=== PATIENT | male | born 1950 | race Caucasian/White ===

== ENCOUNTER → 2017-02-14 | Day surgery (SDC) | payer MEDICARE, BC ==
[~2017-02-14] MED LIST: Lactated Ringers 1,000 ML IV SCH; Meperidine PF 50 MG/ML Syringe IV ONE; Meperidine PF 50 MG/ML Syringe ONE; Midazolam 1 MG/ML 2 ML SDV IV ONE; Midazolam 1 MG/ML 2 ML SDV ONE
[2017-02-14 09:16] VITALS: BP 155/83
--- NOTE | 2017-02-14 13:42 | OR ---
DATE OF OPERATION: 02/14/2017 PREOPERATIVE DIAGNOSIS: HISTORY OF POLYPS. POSTOPERATIVE DIAGNOSIS: HISTORY OF POLYPS. SURGEON: Jv Shafer MD PROCEDURE: FULL-LENGTH COLONOSCOPY. ANESTHESIA: Conscious sedation. COMPLICATIONS: None. SPECIMEN: None. FINDINGS: 1. Full length colonoscopy. 2. Minimal sigmoid diverticulosis. 3. No polyp recurrence. RECOMMENDATIONS: Routine colonoscopy every 10 years. INDICATIONS: Mr. Vuong was in for a physical. Dr. Sheth recommended a colonoscopy, as he has not had one for 12 years and did have apparently a hyperplastic polyp removed. DESCRIPTION OF PROCEDURE: The patient was prepped and draped, placed in the left lateral decubitus position. A lubricated Olympus colonoscope was inserted and easily advanced to the cecum. Direct visualization of the ileocecal valve and appendiceal orifice was accomplished. The bowel prep was adequate. Upon withdrawal of the scope, throughout the entire length of the colon, I found no signs of any polyps, masses, ulcerations. There were no vascular abnormalities or signs of colitis. The patient did have a very minimal scattered diverticula in the distal sigmoid colon. No acute inflammatory changes. The rectal vault was unremarkable. Retroflexion of scope in the rectum showed some perianal skin tags. Otherwise, benign. Air was then suctioned. Scope removed without complication. VIVIEN/NORM /[id number]
== END ==
LOC: CC.SDS 07:25
PROVIDERS: ATTEND Family Medicine
DX: Z12.11 Encounter for screening for malignant neoplasm of colon (principal); K57.30 Diverticulosis of large intestine without perforation or abscess without bleeding; E11.9 Type 2 diabetes mellitus without complications
CPT/HCPCS: 82962; G0105; J2175; J2250; J7120

== ENCOUNTER 2017-05-20 16:59 | Observation (INO) | payer MEDICARE, BC ==
[2017-05-20 17:30] LABS: CHLORIDE,CL 107 mEq/L (98-106); SODIUM,NA 143 mEq/L (136-145)
--- NOTE | 2017-05-20 18:38 | EDM.PDOC ---
ED HPI GENERAL MEDICAL PROBLEM - General Chief Complaint: Neuro Symptoms/Deficits Stated Complaint: slurred speech Time Seen by Provider: 05/20/17 17:17 Source of Information: Reports: Patient, Family () History Limitations: Reports: No Limitations - History of Present Illness INITIAL COMMENTS - FREE TEXT/NARRATIVE: Marky is a 66 yo male who presents to the ER today, accompanied by his , after having an episode of difficulty speaking. He states he came in the house today after working outside and checked his blood sugar, which read 40 so he ate a candy bar. Roughly 30 minutes later he rechecked his blood sugar and was in around 120. He then was sitting and talking to his when his speech became garbled and slurred. He admits he knew what was going on and knew what he wanted to say but was having difficulty getting the words out. His was concerned of a stroke and started driving him here to the ER. About [address] here his speech returned to normal. Has never had an episode like this in the past. He denies any limb weakness or any other neurological symptoms. States he feels his normal self. Feels it had nothing to do with his blood sugar as he has had low blood sugars in the past and nothing like this has ever happened. - Related Data Allergies Allergy/AdvReac Type Severity Reaction Status Date / Time No Known Allergies Allergy Verified 05/20/17 17:14 Home Meds: Home Meds Celecoxib [CeleBREX] 200 mg PO DAILY 02/11/17 [History] Cholecalciferol (Vitamin D3) [Vitamin D3] 2,000 unit PO DAILY 02/11/17 [History] Insulin Aspart [NovoLOG] 12 units SUBCUT 1200 02/11/17 [History] Insulin Aspart [NovoLOG] 12 units SUBCUT ACDINNER 02/11/17 [History] Insuln Asp Prot/Insulin Aspart [NovoLOG Mix 70-30] 26 - 30 units SUBCUT BEDTIME 02/11/17 [History] Multivitamin [Multi-Day Vitamins] 1 tab PO DAILY 02/11/17 [History] Rosuvastatin Calcium 10 mg PO DAILY 02/11/17 [History] Testosterone Cypionate 200 mg IM Q14D 02/11/17 [History] Valsartan [Diovan] 80 mg PO BID 02/11/17 [History] Insulin Aspart [NovoLOG] 12 units SUBCUT QAM 02/14/17 [History] Past Medical History - Past Health History Medical/Surgical History: Denies Medical/Surgical History Cardiovascular History: Reports: Hypertension Respiratory History: Reports: Sleep Apnea Other Musculoskeletal History: Knee sugery. Endocrine/Metabolic History: Reports: Diabetes, Type I - Past Surgical History GI Surgical History: Reports: Cholecystectomy Musculoskeletal Surgical History: Reports: Shoulder Surgery Other Musculoskeletal Surgeries/Procedures:: Back surgery 2014 Social & Family History - Family History Family Medical History: Noncontributory - Tobacco Use Smoking Status *Q: Former Smoker Used Tobacco, but Quit: Yes Month Tobacco Last Used: 2015 - Caffeine Use Caffeine Use: Reports: Coffee, Soda - Recreational Drug Use Recreational Drug Use: No ED ROS GENERAL - Review of Systems Review Of Systems: See Below Constitutional: Reports: No Symptoms HEENT: Reports: No Symptoms Respiratory: Reports: No Symptoms. Denies: Shortness of Breath, Cough Cardiovascular: Reports: No Symptoms. Denies: Chest Pain, Lightheadedness, Palpitations, Syncope Endocrine: Reports: No Symptoms GI/Abdominal: Reports: No Symptoms : Reports: No Symptoms Musculoskeletal: Reports: No Symptoms Neurological: Reports: Trouble Speaking. Denies: Confusion, Dizziness, Headache , Numbness, Paresthesia, Seizure, Syncope, Weakness, Gait Disturbance Psychiatric: Reports: No Symptoms ED EXAM, NEURO - Physical Exam Exam: See Below Exam Limited By: No Limitations General Appearance: Alert, WD/WN, No Apparent Distress Eye Exam: Bilateral Eye: EOMI, Normal Inspection, PERRL Ears: Normal External Exam, Normal TMs, Other (bilateral cerumenosis) Nose: Normal Inspection, Normal Mucosa, No Blood Throat/Mouth: Normal Inspection, Normal Lips, Normal Teeth, Normal Gums, Normal Oropharynx, Normal Voice, No Airway Compromise Head Exam: Atraumatic, Normocephalic Neck: Normal Inspection, Supple, Full Range of Motion Respiratory/Chest: No Respiratory Distress, Lungs Clear, Normal Breath Sounds, No Accessory Muscle Use Cardiovascular: Normal Peripheral Pulses, Regular Rate, Rhythm, No Edema, No Murmur GI/Abdominal: Normal Bowel Sounds, Soft, No Organomegaly, No Mass Neurological: Alert, Normal Mood/Affect, CN II-XII Intact, Normal Plantar Flexion, Normal Gait, No Motor/Sensory Deficits, Oriented x 3. No: Abnormal Finger to Nose, Straight Leg Raise (L), Straight Leg Raise (R), Difficulty Walking Extremities: Normal Inspection, Normal Range of Motion, Non-Tender, No Pedal Edema, Normal Capillary Refill Psychiatric: Normal Affect, Normal Mood Skin Exam: Warm, Dry, Intact, Normal Color, No Rash EKG INTERPRETATION EKG Date: 05/20/17 Time: 17:10 Rhythm: NSR Course - Vital Signs Last Recorded V/S: Last Vital Signs Temp 98.1 F 05/20/17 17:15 Pulse 82 05/20/17 17:15 Resp 20 05/20/17 17:15 BP 154/81 H 05/20/17 17:15 Pulse Ox 97 05/20/17 17:15 - Orders/Labs/Meds Orders: Active Orders 24 hr Category Date Time Status EKG Documentation Completion [RC] STAT Care 05/20/17 17:04 Active Head wo Cont [CT] Stat Exams 05/20/17 17:20 Taken Labs: Laboratory Tests 05/20/17 05/20/17 05/20/17 Range/Units 17:14 17:14 17:14 WBC 9.5 (5.0-10.0) 10^3/uL RBC 4.39 L (4.50-6.00) 10^6/uL Hgb 13.6 L (14.0-18.0) g/dL Hct 41.3 (40.0-54.0) % MCV 94.1 H (82.0-94.0) fL MCH 31.0 (27.0-32.0) pg MCHC 32.9 L (33.0-38.0) g/dL RDW Coeff of Karina 13.3 (11.0-15.0) % Plt Count 226 (150-400) 10^3/uL Neut % (Auto) 72.5 (35-85) % Lymph % (Auto) 16.5 (10-55) % [place] % (Auto) 9.1 (0-16) % Eos % (Auto) 1.6 (0-5) % Baso % (Auto) 0.3 (0-3) % Neut # (Auto) 6.87 (1.80-7.00) 10^3/uL Lymph # (Auto) 1.56 (1.00-4.80) 10^3/uL [place] # (Auto) 0.86 H (0.00-0.80) 10^3/uL Eos # (Auto) 0.15 (0.00-0.45) 10^3/uL Baso # (Auto) 0.03 10^3/uL PT 10.2 (9.7-12.3) SEC INR 0.95 (0.92-1.18) APTT 24.3 L (24.5-30.9) SEC Sodium 143 (136-145) mEq/L Potassium 4.6 (3.5-5.0) mEq/L Chloride 107 H (98-106) mEq/L Carbon Dioxide 28 (21-32) mmol/L BUN 17 (7-18) mg/dL Creatinine 1.2 (0.7-1.3) mg/dL Est Cr Clr Drug Dosing 71.35 mL/min Estimated GFR (MDRD) > 60 (>=60) mL/min Glucose 140 H D (75-99) mg/dL Calcium 8.8 (8.4-10.1) mg/dL Creatine Kinase 114 (35-232) U/L Departure - Departure Time of Disposition: 17:47 Disposition: Refer to Observation Condition: Good Clinical Impression: TIA (transient ischemic attack) Qualifiers: Transient cerebral ischemia type: unspecified Qualified Code(s): G45.9 - Transient cerebral ischemic attack, unspecified - Discharge Information - Problem List & Annotations (1) TIA (transient ischemic attack) SNOMED Code(s): 015209206, [id number] Code(s): G45.9 - TRANSIENT CEREBRAL ISCHEMIC ATTACK, UNSPECIFIED Status: Acute Current Visit: Yes Qualifiers: Transient cerebral ischemia type: unspecified Qualified Code(s): G45.9 - Transient cerebral ischemic attack, unspecified - My Orders Last 24 Hours: My Active Orders 05/20/17 17:04 EKG Documentation Completion [RC] STAT 05/20/17 17:20 Head wo Cont [CT] Stat - Assessment/Plan Admission H&P: Please use this note as an admission H&P Last 24 Hours: My Active Orders 05/20/17 17:04 EKG Documentation Completion [RC] STAT 05/20/17 17:20 Head wo Cont [CT] Stat Plan: Discussed findings with Marky and his . Physical exam, CT Head and EKG were grossly benign. Will admit to Dr. Sheth's services under observation d/t concern of TIA. Consulted with Dr. Sheth in regards to Marky's condition and agreed with admission for observation. Advised obtaining CTA of the Head and Neck. Marky and his verbalized understanding and he was transferred to the floor in satisfactory condition.
[2017-05-20] MEDS ORDERED: Sodium Chloride 0.9% 10 ML Syringe FLUSH PRN (18:46)
[2017-05-20] MEDS ORDERED: Enoxaparin 40 MG/0.4 ML Syringe SUBCUT SCH ×2 (18:46→20:00)
[2017-05-20] MEDS ORDERED: Testosterone Cypionate 200 MG/ML MDV IM SCH (18:46)
[2017-05-20] MEDS ORDERED: Acetaminophen 325 MG Tab PO PRN (18:46)
[2017-05-20] MEDS ORDERED: Insuln Aspart Prot/Insulin Aspart 100 Units/ML 3 ML FlexPen SUBCUT SCH (20:00)
[2017-05-20] MEDS ORDERED: Losartan 25 MG Tab PO SCH (20:00)
[2017-05-20] MEDS ORDERED: ROSUVASTATIN 20 MG PO SCH (20:45)
[2017-05-20] MEDS: VALSARTAN 160 MG PO SCH (21:26)
[2017-05-21] MEDS ORDERED: Iopamidol 755 Mg/ML 100 ML Bottle IVPUSH ONE (07:19)
[2017-05-21] MEDS ORDERED: Insulin Aspart 100 Units/ML 3 ML Pen SUBCUT SCH ×3 (08:00→17:00)
[2017-05-21] MEDS: VALSARTAN 160 MG PO SCH (08:42)
--- NOTE | 2017-05-21 09:10 | PN ---
DATE: 05/21/2017 Marky Vuong came in with a garbled speech last night. Blood sugar is 140, so I suspect he had a mild TIA. Neurologically, he is normal this morning. We will do a CTA of head and neck and an echo and then we will go from there. SWATI/NORM /[id number]
[2017-05-21 11:40] VITALS: BP 154/78
[2017-05-21] MEDS ORDERED: Simvastatin 40 MG Tab PO SCH (20:00)
[2017-05-21] MEDS ORDERED: CELECOXIB 200 MG PO SCH (20:00)
[2017-05-21] MEDS ORDERED: Insuln Aspart Prot/Insulin Aspart 100 Units/ML 3 ML FlexPen SUBCUT SCH (20:00)
--- NOTE | 2017-05-23 10:34 | DISCH ---
HOSPITAL COURSE: This is a 66-year-old gentleman came in with garbled speech with diagnosis of TIA, admitted to the hospital, started on Plavix and Lovenox, responded nicely, and that all cleared. CTA of head and neck showed 75% carotid stenosis, left side. Echo pending. Rest of lab other than elevated blood sugars within normal limits. DISPOSITION: The patient now discharged home. We will see him back in the clinic next week. DISCHARGE MEDICATIONS: Home medications plus Plavix 75. DISCHARGE DIAGNOSIS: 1. TRANSIENT ISCHEMIC ATTACK. 2. DIABETES MELLITUS. SWATI/NORM /[id number]
== END 2017-05-21 11:59 | disposition home or self-care (01) ==
LOC: CC.ED 16:59 → CC.MS 17:47 → UNDOADMOB 17:47 → CC.MS 18:46
PROVIDERS: ADMIT Physician Assistant Medical; ATTEND General Practice
DX: G45.9 Transient cerebral ischemic attack, unspecified (principal); E11.9 Type 2 diabetes mellitus without complications; I10 Essential (primary) hypertension; G47.30 Sleep apnea, unspecified; Z79.4 Long term (current) use of insulin; Z79.899 Other long term (current) drug therapy; Z90.49 Acquired absence of other specified parts of digestive tract; Z98.890 Other specified postprocedural states; Z87.891 Personal history of nicotine dependence
CPT/HCPCS: 36415; 70450; 70496; 70498; 80048; 81001; 82550; 82962; 85025; 85610; 85730; 93005; 93306; 96372; 99285; A9270; G0378; J1650; J1815; Q9967; 93010; 99217; 99220

== ENCOUNTER 2020-09-03 18:46 | Emergency (ER) | payer MEDICARE, BC ==
[2020-09-03 18:49] VITALS: BP 143/68; PULSE 95
--- NOTE | 2020-09-03 19:27 | EDM.PDOC ---
ED HPI GENERAL MEDICAL PROBLEM - General Chief Complaint: General Stated Complaint: SOB. COVID+ Time Seen by Provider: 09/03/20 19:10 Source of Information: Reports: Patient History Limitations: Reports: No Limitations - History of Present Illness INITIAL COMMENTS - FREE TEXT/NARRATIVE: Marky is a 69 year old male who presents to ER with complaints of shortness of breath and fever. Was diagnosed with COVID about 14 days ago. Was given a course of zithromax and dexamethasone from Dr. Sheth. Is currently taking Vitamin C, Vitamin D and Zinc. Is also on magnesium and admits that has caused worsening diarrhea for him. Has not had any recent vomiting. Does not have much of an appetite. Has not been very active as of late. Was feeling pretty good but over the last 4 days, continues to spike fevers in the afternoon. Does take an aspirin or tylenol when gets one. Mostly concerned at this point as to why he is still running fevers. Does have shortness of breath but admits that is somewhat chronic for him due to his smoking history. Has mild body aches. No loss of taste or smell. Onset: Gradual Duration: Week(s): Location: Reports: Chest, Generalized Quality: Reports: Ache Severity: Mild Treatments YEAST PUSHER: Reports: Aspirin - Related Data Allergies Allergy/AdvReac Type Severity Reaction Status Date / Time No Known Allergies Allergy Verified 09/03/20 19:01 Home Meds: Home Meds Cholecalciferol (Vitamin D3) [Vitamin D3] 5,000 unit PO DAILY 02/11/17 [History] Multivitamin [Multi-Day Vitamins] 1 tab PO DAILY 02/11/17 [History] Rosuvastatin Calcium 10 mg PO DAILY 02/11/17 [History] Testosterone Cypionate 200 mg IM Q30D 02/11/17 [History] Insulin Glargine,Hum.Rec.Anlog [Uyen Solnina] 30 units SQ BEDTIME 03/19/18 [History] hydroCHLOROthiazide [Hydrochlorothiazide] 12.5 mg PO DAILY 03/19/18 [History] Celecoxib [CeleBREX] 200 mg PO BID 05/14/18 [History] Clopidogrel Bisulfate [Plavix] 75 mg PO DAILY 05/14/18 [History] Metoprolol Succinate 25 mg PO DAILY 05/14/18 [History] Cyclobenzaprine [Flexeril] 10 mg PO DAILY PRN 02/20/19 [History] Insulin Aspart [NovoLOG] See Protocol SUBCUT ASDIRECTED 02/20/19 [History] Losartan [Cozaar] 50 mg PO DAILY 02/20/19 [History] Potassium 99 mg PO DAILY 02/20/19 [History] Past Medical History - Past Health History Medical/Surgical History: Denies Medical/Surgical History Cardiovascular History: Reports: High Cholesterol, Hypertension Other Cardiovascular History: Says he has been SOB for some time. Had a physical with Dr. Sheth as well as a calcium score test. Had a stress test, sent to cardiology. Went in through wrist. Has seen cardiology since his stent. Since stents: denies cp, SOB much improved, says he has back and knee problems, says his blood sugars are "all over the place"--discussed. Quit smoking a year ago, had smoked for 30 years Respiratory History: Reports: Sleep Apnea Other Musculoskeletal History: Knee sugery. Endocrine/Metabolic History: Reports: Diabetes, Type II - Past Surgical History GI Surgical History: Reports: Cholecystectomy Musculoskeletal Surgical History: Reports: Shoulder Surgery Other Musculoskeletal Surgeries/Procedures:: Back surgery 2014 Social & Family History - Family History Family Medical History: Noncontributory - Tobacco Use Tobacco Use Status *Q: Former Tobacco User Used Tobacco, but Quit: Yes Month/Year Tobacco Last Used: 2009 - Caffeine Use Caffeine Use: Reports: None - Recreational Drug Use Recreational Drug Use: No ED ROS GENERAL - Review of Systems Review Of Systems: See Below Constitutional: Reports: Fever, Chills, Malaise, Weakness, Fatigue, Decreased Appetite HEENT: Denies: Ear Pain, Sinus Problem, Throat Pain, Vertigo Respiratory: Reports: Shortness of Breath. Denies: Wheezing, Cough Cardiovascular: Denies: Chest Pain, Edema, Lightheadedness Endocrine: Reports: Fatigue GI/Abdominal: Reports: Diarrhea, Nausea. Denies: Abdominal Pain, Constipation, Vomiting : Reports: No Symptoms Musculoskeletal: Reports: No Symptoms Skin: Reports: No Symptoms Neurological: Reports: Weakness ED EXAM, GENERAL - Physical Exam Exam: See Below Exam Limited By: No Limitations General Appearance: Alert, WD/WN, No Apparent Distress Ears: Normal External Exam, Normal TMs Nose: Normal Inspection, Normal Mucosa, No Blood Throat/Mouth: Normal Inspection, Normal Oropharynx Head: Normocephalic Neck: Normal Inspection, Supple, Non-Tender Respiratory/Chest: No Respiratory Distress, Lungs Clear, Normal Breath Sounds Cardiovascular: Regular Rate, Rhythm GI/Abdominal: Normal Bowel Sounds, Soft, Non-Tender Neurological: Alert, Oriented Skin Exam: Warm, Dry Course - Vital Signs Last Recorded V/S: Last Vital Signs Temp 98.1 F 09/03/20 18:48 Pulse 95 09/03/20 18:48 Resp 20 09/03/20 18:48 BP 143/68 H 09/03/20 18:48 Pulse Ox 95 09/03/20 18:48 - Orders/Labs/Meds Orders: Active Orders 24 hr Category Date Time Status Chest 2V [CR] Stat Exams 09/03/20 19:17 Taken CULTURE BLOOD [BC] Stat Lab 09/03/20 19:00 Received CULTURE BLOOD [BC] Stat Lab 09/03/20 19:10 Received Sodium Chloride 0.9% [Normal Saline] 250 ml Med 09/03/20 19:30 Active IV ASDIRECTED Blood Culture x2 Reflex Set [OM.PC] Stat Oth 09/03/20 18:47 Ordered Blood Culture x2 Reflex Set [OM.PC] Stat Oth 09/03/20 18:49 Ordered Medication Orders Sodium Chloride (Normal Saline) 250 mls @ 250 mls/hr IV ASDIRECTED RODGER Last Admin: 09/03/20 19:36 Dose: 250 mls/hr Documented by: DONIS Labs: Laboratory Tests 09/03/20 09/03/20 09/03/20 Range/Units 19:00 19:00 19:00 WBC 8.3 (5.0-10.0) 10^3/uL RBC 4.65 (4.50-6.00) 10^6/uL Hgb 14.3 (14.0-18.0) g/dL Hct 42.7 (40.0-54.0) % MCV 91.8 (82.0-94.0) fL MCH 30.8 (27.0-32.0) pg MCHC 33.5 (33.0-38.0) g/dL RDW Coeff of Karina 13.1 (11.0-15.0) % Plt Count 191 (150-400) 10^3/uL Neut % (Auto) 82.9 (35-85) % Lymph % (Auto) 9.0 L (10-55) % [place] % (Auto) 7.6 (0-16) % Eos % (Auto) 0.4 (0-5) % Baso % (Auto) 0.1 (0-3) % Neut # (Auto) 6.88 (1.80-7.00) 10^3/uL Lymph # (Auto) 0.75 L (1.00-4.80) 10^3/uL [place] # (Auto) 0.63 (0.00-0.80) 10^3/uL Eos # (Auto) 0.03 (0.00-0.45) 10^3/uL Baso # (Auto) 0.01 10^3/uL PT (9.7-12.3) SEC INR (0.92-1.18) D-Dimer, Quantitative 1.68 H (0.00-0.50) Sodium 136 (136-145) mEq/L Potassium 4.8 (3.5-5.0) mEq/L Chloride 101 (98-106) mEq/L Carbon Dioxide 23 (21-32) mmol/L BUN 25 H (7-18) mg/dL Creatinine 1.6 H (0.7-1.3) mg/dL Est Cr Clr Drug Dosing 51.38 mL/min Estimated GFR (MDRD) 43 L (>=60) mL/min Glucose 178 H (75-99) mg/dL Lactic Acid (0.4-2.0) mmol/L Calcium 8.5 (8.4-10.1) mg/dL Magnesium 2.2 (1.8-2.4) mg/dL Total Bilirubin 0.4 (0.0-1.0) mg/dL AST 37 (15-37) U/L ALT 63 (12-78) U/L Alkaline Phosphatase 152 H (46-116) U/L Troponin I < 0.017 (0.00-0.06) ng/mL C-Reactive Protein 4.0 H (0.2-0.8) mg/dL Total Protein 7.0 (6.4-8.2) g/dL Albumin 2.9 L (3.4-5.0) g/dL 09/03/20 09/03/20 Range/Units 19:00 19:00 WBC (5.0-10.0) 10^3/uL RBC (4.50-6.00) 10^6/uL Hgb (14.0-18.0) g/dL Hct (40.0-54.0) % MCV (82.0-94.0) fL MCH (27.0-32.0) pg MCHC (33.0-38.0) g/dL RDW Coeff of Karina (11.0-15.0) % Plt Count (150-400) 10^3/uL Neut % (Auto) (35-85) % Lymph % (Auto) (10-55) % [place] % (Auto) (0-16) % Eos % (Auto) (0-5) % Baso % (Auto) (0-3) % Neut # (Auto) (1.80-7.00) 10^3/uL Lymph # (Auto) (1.00-4.80) 10^3/uL [place] # (Auto) (0.00-0.80) 10^3/uL Eos # (Auto) (0.00-0.45) 10^3/uL Baso # (Auto) 10^3/uL PT 9.6 L (9.7-12.3) SEC INR 0.95 (0.92-1.18) D-Dimer, Quantitative (0.00-0.50) Sodium (136-145) mEq/L Potassium (3.5-5.0) mEq/L Chloride (98-106) mEq/L Carbon Dioxide (21-32) mmol/L BUN (7-18) mg/dL Creatinine (0.7-1.3) mg/dL Est Cr Clr Drug Dosing mL/min Estimated GFR (MDRD) (>=60) mL/min Glucose (75-99) mg/dL Lactic Acid 1.0 (0.4-2.0) mmol/L Calcium (8.4-10.1) mg/dL Magnesium (1.8-2.4) mg/dL Total Bilirubin (0.0-1.0) mg/dL AST (15-37) U/L ALT (12-78) U/L Alkaline Phosphatase (46-116) U/L Troponin I (0.00-0.06) ng/mL C-Reactive Protein (0.2-0.8) mg/dL Total Protein (6.4-8.2) g/dL Albumin (3.4-5.0) g/dL Meds: Medications Generic Name Dose Route Start Last Admin Trade Name Verenice PRN Reason Stop Dose Admin Sodium Chloride 250 mls @ 250 mls/hr 09/03/20 19:30 09/03/20 19:36 Normal Saline IV 250 mls/hr ASDIRECTED RODGER Administration - Re-Assessments/Exams Free Text/Narrative Re-Assessment/Exam: 09/03/20 19:47 Labs are all essentially stable. CRP 4.0. WBC is stable. Creatinine is elevated at 1.6. IV fluids started, will give 250 ml bolus. Much discussion held with by phone and patient. Departure - Departure Time of Disposition: 20:43 Disposition: Home, Self-Care 01 Condition: Fair Clinical Impression: COVID-19 - Discharge Information *PRESCRIPTION DRUG MONITORING PROGRAM REVIEWED*: No *COPY OF PRESCRIPTION DRUG MONITORING REPORT IN PATIENT SARAH: No Instructions: COVID-19 Referrals: Benjy Sheth MD [Primary Care Provider] - Forms: ED Department Discharge Additional Instructions: 1. Push fluids 2. Alternate tylenol with either ibuprofen or Anacin every 3 hours 3. Rest/lie on your stomach for 20-30 minutes every few hours as able 4. Deep breathing exercises 5. Continue Vitamin C, Vitamin D and Zinc. Hold magnesium for now until diarrhea improves as magnesium level is normal today in ER 6. Contact Dr. Sheth with any concerns. Sepsis Event Note (ED) - Evaluation Sepsis Screening Result: No Definite Risk - Focused Exam Vital Signs: Vital Signs Temp Pulse Resp BP Pulse Ox 09/03/20 18:48 98.1 F 95 20 143/68 H 95 - My Orders Last 24 Hours: My Active Orders 09/03/20 18:47 Blood Culture x2 Reflex Set [OM.PC] Stat 09/03/20 18:49 Blood Culture x2 Reflex Set [OM.PC] Stat 09/03/20 19:00 CULTURE BLOOD [BC] Stat 09/03/20 19:10 CULTURE BLOOD [BC] Stat 09/03/20 19:17 Chest 2V [CR] Stat 09/03/20 19:30 Sodium Chloride 0.9% [Normal Saline] 250 ml IV ASDIRECTED - Assessment/Plan Last 24 Hours: My Active Orders 09/03/20 18:47 Blood Culture x2 Reflex Set [OM.PC] Stat 09/03/20 18:49 Blood Culture x2 Reflex Set [OM.PC] Stat 09/03/20 19:00 CULTURE BLOOD [BC] Stat 09/03/20 19:10 CULTURE BLOOD [BC] Stat 09/03/20 19:17 Chest 2V [CR] Stat 09/03/20 19:30 Sodium Chloride 0.9% [Normal Saline] 250 ml IV ASDIRECTED
[2020-09-03] MEDS ORDERED: Sodium Chloride 0.9% 250 ML IV SCH (19:30)
[2020-09-03 19:32] LABS: CHLORIDE,CL 101 mEq/L (98-106); SODIUM,NA 136 mEq/L (136-145)
== END 2020-09-03 20:45 | disposition home or self-care (01) ==
LOC: CC.ED 18:46
DX: U07.1 COVID-19 (principal); E78.00 Pure hypercholesterolemia, unspecified; I10 Essential (primary) hypertension; E11.9 Type 2 diabetes mellitus without complications; Z90.89 Acquired absence of other organs; Z79.899 Other long term (current) drug therapy; Z87.891 Personal history of nicotine dependence
CPT/HCPCS: 36415; 71046; 80053; 83605; 83735; 84484; 85025; 85379; 85610; 86140; 87040; 93005; 93010; 99284; 99285-25; J7050

== ENCOUNTER → 2022-03-22 | Day surgery (SDC) | payer MEDICARE, BC ==
[~2022-03-22] MED LIST changes: +Ketamine 200 MG/20 ML MDV ONE; -Meperidine PF 50 MG/ML Syringe IV ONE; -Meperidine PF 50 MG/ML Syringe ONE; -Midazolam 1 MG/ML 2 ML SDV IV ONE; -Midazolam 1 MG/ML 2 ML SDV ONE; +Propofol 200 MG/20 ML SDV ONE; +fentaNYL 100 MCG/2 ML SDV ONE
[2022-03-22 10:19] VITALS: BP 156/74; PULSE 83
== END ==
LOC: CC.SDS 07:25
PROVIDERS: ATTEND Family Medicine
DX: D12.3 Benign neoplasm of transverse colon (principal); K62.1 Rectal polyp; E11.9 Type 2 diabetes mellitus without complications; E55.9 Vitamin D deficiency, unspecified; J44.9 Chronic obstructive pulmonary disease, unspecified; I10 Essential (primary) hypertension; G47.33 Obstructive sleep apnea (adult) (pediatric); I25.10 Atherosclerotic heart disease of native coronary artery without angina pectoris; E78.5 Hyperlipidemia, unspecified; Z87.891 Personal history of nicotine dependence; Z79.899 Other long term (current) drug therapy; Z90.49 Acquired absence of other specified parts of digestive tract; Z98.890 Other specified postprocedural states; Z86.73 Personal history of transient ischemic attack (TIA), and cerebral infarction without residual deficits
CPT/HCPCS: 00811; 82947; J2704; J3010; J7120

== ENCOUNTER → 2023-04-04 | Day surgery (SDC) | payer MEDICARE, BC ==
[~2023-04-04] MED LIST changes: +Lidocaine 2% 20 ML MDV ONE; -fentaNYL 100 MCG/2 ML SDV ONE; +fentaNYL 50 MCG/ML SDV ONE
[2023-04-04 13:46] VITALS: BP 147/72; PULSE 56
== END ==
LOC: CC.SDS 08:12
PROVIDERS: ATTEND Family Medicine
DX: K29.50 Unspecified chronic gastritis without bleeding (principal); K21.9 Gastro-esophageal reflux disease without esophagitis; E11.9 Type 2 diabetes mellitus without complications; I10 Essential (primary) hypertension; G47.30 Sleep apnea, unspecified; Z79.4 Long term (current) use of insulin; Z87.891 Personal history of nicotine dependence
CPT/HCPCS: 00731; 87081; 88305; 88342; 99100; J2704; J3010; J3490; J7120

== ENCOUNTER 2023-09-08 16:28 | Inpatient (IN) | payer MEDICARE, BC ==
[2023-09-08] MEDS ORDERED: Sodium Chloride 0.9% 1,000 ML IV ONE (16:51)
[2023-09-08 16:57] LABS: BASOPHILS ABSOLUTE AUTO 0.04 10^3/uL (0.00-0.50); BASOPHILS PERCENT AUTO 0.3 % (0-1); EOSINOPHILS ABSOLUTE AUTO 0.13 10^3/uL (0.00-1.50); HEMOGLOBIN 14.3 g/dL (14.0-18.0); IMMATURE GRAN PERCENT AUTO 1.6 % (0.0-4.9); LYMPHOCYTES ABSOLUTE AUTO 1.35 10^3/uL (0.60-5.00); LYMPHOCYTES PERCENT AUTO 10.8 % (24-44); MEAN CORPUSCULAR HEMOGLOBIN 31.4 pg (27.0-32.0); MEAN CORPUSCULAR HGB CONC 33.3 g/dL (32.0-36.0); MEAN CORPUSCULAR VOLUME 94.3 fL (83.0-97.0); MONOCYTES ABSOLUTE AUTO 0.74 10^3/uL (0.00-1.50); MONOCYTES PERCENT AUTO 5.9 % (0-10); NEUTROPHILS ABSOLUTE AUTO 10.05 x10^3/uL (1.80-8.00); NEUTROPHILS PERCENT AUTO 80.4 % (41-71); PLATELET COUNT,PLT 245 10^3/uL (150-400); RED BLOOD CELL COUNT 4.56 x10^6/uL (4.50-6.00); WHITE BLOOD CELL COUNT,WBC 12.5 10^3/uL (4.0-11.0)
[2023-09-08] MEDS ORDERED: Diphtheria/Tetanus Toxoids,Adult (Td) 0.5 ML SDV IM ONE (16:57)
[2023-09-08 17:10] LABS: ALANINE AMINOTRANSFERASE,ALT 54 U/L (12-78); ALBUMIN 3.4 g/dL (3.4-5.0); ALKALINE PHOSPHATASE 130 U/L (46-116); ASPARTATE AMNIOTRANSFERASE,AST 65 U/L (15-37); BILIRUBIN TOTAL 0.2 mg/dL (0.0-1.0); BLOOD UREA NITROGEN,BUN 14 mg/dL (7-18); C-REACTIVE PROTEIN 0.05 mg/dL (<=0.30); CALCIUM 9.3 mg/dL (8.4-10.1); CARBON DIOXIDE,CO2 30 mmol/L (21-32); CHLORIDE,CL 104 mEq/L (98-106); CREATININE 1.3 mg/dL (0.7-1.3); GLUCOSE RANDOM 92 mg/dL (75-99); POTASSIUM,K 4.5 mEq/L (3.5-5.0); PROTEIN TOTAL,TP 7.1 g/dL (6.4-8.2); SODIUM,NA 140 mEq/L (136-145)
[2023-09-08 17:11] LABS: ESTIMATED GFR 59 mL/min (>=60)
[2023-09-08] MEDS ORDERED: HYDROmorphone 0.5 MG/0.5 ML Syringe IVPUSH ONE ×2 (18:04→19:40)
[2023-09-08] MEDS ORDERED: Iopamidol 755 Mg/ML 100 ML Bottle IVPUSH ONE (18:07)
[2023-09-08] MEDS: Bacitracin/Neomycin/Polymyxin B Oint 28.4 GM Tube TOP SCH (18:55)
[2023-09-08] MEDS ORDERED: Acetaminophen/HYDROcodone 325-5 MG Tab PO ONE (19:40)
[2023-09-08 20:05] LABS: APPEARANCE,URINE CLEAR (CLEAR); BILIRUBIN,URINE NEGATIVE (NEGATIVE); COLOR,URINE YELLOW (YELLOW); GLUCOSE,URINE NEGATIVE (NEGATIVE); KETONES,URINE 15 mg/dL (NEGATIVE); LEUKOCYTE ESTERASE,URINE NEGATIVE (NEGATIVE); NITRITE,URINE NEGATIVE (NEGATIVE); OCCULT BLOOD,URINE TRACE-INTACT (NEGATIVE); PH,URINE 5.5 (4.5-8.0); PROTEIN,URINE NEGATIVE (NEGATIVE); UROBILINOGEN,URINE 0.2 EU/dL (0.2-1.0)
[2023-09-08 20:06] LABS: RBC,URINE NOT SEEN /HPF (0-5); WBC,URINE NOT SEEN /HPF (0-5)
[2023-09-08] MEDS ORDERED: Temazepam 15 MG Cap PO PRN (20:47)
[2023-09-08] MEDS ORDERED: Naloxone 2 MG/2 ML Syringe IVPUSH PRN (20:47)
[2023-09-08] MEDS ORDERED: Ondansetron 4 MG Tab.DIS PO PRN (20:47)
[2023-09-08] MEDS ORDERED: Docusate Sodium 100 MG Cap PO PRN (20:47)
[2023-09-08] MEDS ORDERED: Acetaminophen 325 MG Tab PO PRN (20:47)
[2023-09-08] MEDS ORDERED: HYDROmorphone 1 MG/ML Syringe IVPUSH PRN (20:47)
[2023-09-08] MEDS ORDERED: Sodium Chloride 0.9% 10 ML Syringe FLUSH PRN (20:47)
[2023-09-08] MEDS ORDERED: Ondansetron 4 MG/2 ML SDV IV PRN (20:47)
[2023-09-08] MEDS: Sodium Chloride 0.9% 1,000 ML IV SCH (22:45)
[2023-09-09] MEDS: Acetaminophen/HYDROcodone 325-5 MG Tab PO PRN ×5 (00:04→18:54)
[2023-09-09] MEDS: Pantoprazole 40 MG Tab.CR PO SCH (06:31)
[2023-09-09 07:12] LABS: BASOPHILS ABSOLUTE AUTO 0.04 10^3/uL (0.00-0.50); BASOPHILS PERCENT AUTO 0.4 % (0-1); EOSINOPHILS ABSOLUTE AUTO 0.08 10^3/uL (0.00-1.50); EOSINOPHILS PERCENT AUTO 0.8 % (0-6); HEMATOCRIT 39.5 % (42.0-52.0); HEMOGLOBIN 13.1 g/dL (14.0-18.0); IMMATURE GRAN ABSOLUTE AUTO 0.03 10^3/uL (0.00-0.49); IMMATURE GRAN PERCENT AUTO 0.3 % (0.0-4.9); LYMPHOCYTES ABSOLUTE AUTO 1.19 10^3/uL (0.60-5.00); LYMPHOCYTES PERCENT AUTO 11.8 % (24-44); MEAN CORPUSCULAR HEMOGLOBIN 31.6 pg (27.0-32.0); MEAN CORPUSCULAR HGB CONC 33.2 g/dL (32.0-36.0); MEAN CORPUSCULAR VOLUME 95.2 fL (83.0-97.0); MONOCYTES PERCENT AUTO 8.9 % (0-10); NEUTROPHILS ABSOLUTE AUTO 7.86 x10^3/uL (1.80-8.00); NEUTROPHILS PERCENT AUTO 77.8 % (41-71); PLATELET COUNT,PLT 228 10^3/uL (150-400); RED BLOOD CELL COUNT 4.15 x10^6/uL (4.50-6.00); WHITE BLOOD CELL COUNT,WBC 10.1 10^3/uL (4.0-11.0)
[2023-09-09 07:50] LABS: ALBUMIN 2.9 g/dL (3.4-5.0); BILIRUBIN TOTAL 0.5 mg/dL (0.0-1.0); C-REACTIVE PROTEIN 1.84 mg/dL (<=0.30); CALCIUM 8.4 mg/dL (8.4-10.1); CREATININE 1.5 mg/dL (0.7-1.3); EST CRCL DRUG DOSING (CG) 52.52 mL/min; POTASSIUM,K 4.5 mEq/L (3.5-5.0); PROTEIN TOTAL,TP 6.2 g/dL (6.4-8.2)
[2023-09-09] MEDS: Escitalopram 10 MG Tab PO SCH (08:00)
[2023-09-09] MEDS: Ascorbic Acid 500 MG Tab PO SCH (08:00)
[2023-09-09] MEDS: Aspirin 81 MG Tab.EC PO SCH (08:00)
[2023-09-09] MEDS: Cholecalciferol (Vitamin D3) 5,000 UNIT Tab PO SCH (08:00)
[2023-09-09] MEDS: Hydrochlorothiazide 12.5 MG Cap PO SCH (08:01)
[2023-09-09] MEDS: Multivitamin Tab PO SCH (08:01)
[2023-09-09] MEDS: Losartan 25 MG Tab PO SCH (08:01)
[2023-09-09] MEDS: Loratadine 10 MG Tab PO SCH (08:01)
[2023-09-09] MEDS: Bacitracin/Neomycin/Polymyxin B Oint 28.4 GM Tube TOP SCH ×3 (08:12→22:21)
[2023-09-09] MEDS: Enoxaparin 40 MG/0.4 ML Syringe SUBCUT SCH (12:27)
[2023-09-09] MEDS: Sodium Chloride 0.9% 1,000 ML IV SCH ×2 (14:52→18:03)
[2023-09-09] MEDS: Celecoxib 100 MG Cap PO SCH (20:17)
[2023-09-09] MEDS: Docusate Sodium 100 MG Cap PO SCH (20:18)
[2023-09-09] MEDS: Metoprolol Succinate 25 MG Tab.ER PO SCH (20:19)
[2023-09-09] MEDS: Rosuvastatin 10 MG Tab PO SCH (20:19)
[2023-09-10] MEDS: Pantoprazole 40 MG Tab.CR PO SCH (05:59)
[2023-09-10] MEDS: Acetaminophen/HYDROcodone 325-5 MG Tab PO PRN (05:59)
[2023-09-10 07:37] LABS: BASOPHILS ABSOLUTE AUTO 0.04 10^3/uL (0.00-0.50); BASOPHILS PERCENT AUTO 0.4 % (0-1); EOSINOPHILS ABSOLUTE AUTO 0.12 10^3/uL (0.00-1.50); EOSINOPHILS PERCENT AUTO 1.1 % (0-6); HEMATOCRIT 41.1 % (42.0-52.0); HEMOGLOBIN 13.3 g/dL (14.0-18.0); IMMATURE GRAN ABSOLUTE AUTO 0.03 10^3/uL (0.00-0.49); IMMATURE GRAN PERCENT AUTO 0.3 % (0.0-4.9); LYMPHOCYTES PERCENT AUTO 7.1 % (24-44); MEAN CORPUSCULAR HEMOGLOBIN 31.6 pg (27.0-32.0); MEAN CORPUSCULAR HGB CONC 32.4 g/dL (32.0-36.0); MEAN CORPUSCULAR VOLUME 97.6 fL (83.0-97.0); MONOCYTES ABSOLUTE AUTO 0.94 10^3/uL (0.00-1.50); MONOCYTES PERCENT AUTO 8.3 % (0-10); NEUTROPHILS ABSOLUTE AUTO 9.35 x10^3/uL (1.80-8.00); NEUTROPHILS PERCENT AUTO 82.8 % (41-71); PLATELET COUNT,PLT 175 10^3/uL (150-400); RED BLOOD CELL COUNT 4.21 x10^6/uL (4.50-6.00); WHITE BLOOD CELL COUNT,WBC 11.3 10^3/uL (4.0-11.0)
[2023-09-10] MEDS: Losartan 25 MG Tab PO SCH (07:54)
[2023-09-10] MEDS: Docusate Sodium 100 MG Cap PO SCH ×2 (07:54→19:52)
[2023-09-10] MEDS: Loratadine 10 MG Tab PO SCH (07:54)
[2023-09-10] MEDS: Escitalopram 10 MG Tab PO SCH (07:55)
[2023-09-10] MEDS: Hydrochlorothiazide 12.5 MG Cap PO SCH (07:55)
[2023-09-10] MEDS: Aspirin 81 MG Tab.EC PO SCH (07:55)
[2023-09-10 07:56] LABS: ALBUMIN 2.7 g/dL (3.4-5.0); BILIRUBIN TOTAL 0.6 mg/dL (0.0-1.0); C-REACTIVE PROTEIN 6.74 mg/dL (<=0.30); CALCIUM 8.3 mg/dL (8.4-10.1); CREATININE 1.2 mg/dL (0.7-1.3); EST CRCL DRUG DOSING (CG) 65.65 mL/min; POTASSIUM,K 4.3 mEq/L (3.5-5.0); PROTEIN TOTAL,TP 6.3 g/dL (6.4-8.2)
[2023-09-10] MEDS: Multivitamin Tab PO SCH (07:56)
[2023-09-10] MEDS: Ascorbic Acid 500 MG Tab PO SCH (07:57)
[2023-09-10] MEDS: Bacitracin/Neomycin/Polymyxin B Oint 28.4 GM Tube TOP SCH ×3 (07:57→20:19)
[2023-09-10] MEDS: Cholecalciferol (Vitamin D3) 5,000 UNIT Tab PO SCH (07:58)
[2023-09-10] MEDS: Acetaminophen/HYDROcodone 325-5 MG Tab PO SCH ×3 (10:24→17:41)
[2023-09-10] MEDS: Enoxaparin 40 MG/0.4 ML Syringe SUBCUT SCH (11:34)
[2023-09-10] MEDS: HYDROmorphone 0.5 MG/0.5 ML Syringe IVPUSH PRN ×2 (12:53→19:53)
[2023-09-10] MEDS: Sodium Chloride 0.9% 1,000 ML IV SCH (12:57)
[2023-09-10] MEDS ORDERED: Cyclobenzaprine 10 MG Tab PO PRN (18:40)
[2023-09-10] MEDS: Celecoxib 100 MG Cap PO SCH (19:52)
[2023-09-10] MEDS: Rosuvastatin 10 MG Tab PO SCH (19:53)
[2023-09-10] MEDS: Metoprolol Succinate 25 MG Tab.ER PO SCH (19:53)
[2023-09-10] MEDS: Polyethylene Glycol 3350 Powder 17 GM Packet PO PRN (19:53)
[2023-09-10] MEDS: Melatonin 3 MG Tab PO SCH (20:17)
[2023-09-10] MEDS: oxyCODONE 5 MG Tab PO SCH (20:19)
[2023-09-11] MEDS: oxyCODONE 5 MG Tab PO SCH ×4 (01:58→19:24)
[2023-09-11] MEDS: HYDROmorphone 0.5 MG/0.5 ML Syringe IVPUSH PRN (04:59)
[2023-09-11] MEDS: Pantoprazole 40 MG Tab.CR PO SCH (06:02)
[2023-09-11] MEDS: Sodium Chloride 0.9% 1,000 ML IV SCH (06:35)
[2023-09-11 07:24] LABS: BASOPHILS ABSOLUTE AUTO 0.05 10^3/uL (0.00-0.50); BASOPHILS PERCENT AUTO 0.5 % (0-1); EOSINOPHILS ABSOLUTE AUTO 0.16 10^3/uL (0.00-1.50); EOSINOPHILS PERCENT AUTO 1.6 % (0-6); HEMATOCRIT 40.7 % (42.0-52.0); HEMOGLOBIN 13.1 g/dL (14.0-18.0); IMMATURE GRAN ABSOLUTE AUTO 0.02 10^3/uL (0.00-0.49); IMMATURE GRAN PERCENT AUTO 0.2 % (0.0-4.9); LYMPHOCYTES ABSOLUTE AUTO 0.81 10^3/uL (0.60-5.00); LYMPHOCYTES PERCENT AUTO 7.9 % (24-44); MEAN CORPUSCULAR HEMOGLOBIN 31.4 pg (27.0-32.0); MEAN CORPUSCULAR HGB CONC 32.2 g/dL (32.0-36.0); MEAN CORPUSCULAR VOLUME 97.6 fL (83.0-97.0); MONOCYTES ABSOLUTE AUTO 0.94 10^3/uL (0.00-1.50); MONOCYTES PERCENT AUTO 9.2 % (0-10); NEUTROPHILS ABSOLUTE AUTO 8.27 x10^3/uL (1.80-8.00); NEUTROPHILS PERCENT AUTO 80.6 % (41-71); PLATELET COUNT,PLT 169 10^3/uL (150-400); RED BLOOD CELL COUNT 4.17 x10^6/uL (4.50-6.00); WHITE BLOOD CELL COUNT,WBC 10.3 10^3/uL (4.0-11.0)
[2023-09-11] MEDS: Bacitracin/Neomycin/Polymyxin B Oint 28.4 GM Tube TOP SCH ×3 (07:41→19:34)
[2023-09-11] MEDS: Hydrochlorothiazide 12.5 MG Cap PO SCH (07:42)
[2023-09-11] MEDS: Aspirin 81 MG Tab.EC PO SCH (07:42)
[2023-09-11] MEDS: Docusate Sodium 100 MG Cap PO SCH ×2 (07:42→19:24)
[2023-09-11] MEDS: Escitalopram 10 MG Tab PO SCH (07:42)
[2023-09-11] MEDS: Ascorbic Acid 500 MG Tab PO SCH (07:42)
[2023-09-11] MEDS: Losartan 25 MG Tab PO SCH (07:42)
[2023-09-11] MEDS: Multivitamin Tab PO SCH (07:42)
[2023-09-11] MEDS: Polyethylene Glycol 3350 Powder 17 GM Packet PO PRN (07:42)
[2023-09-11] MEDS: Cholecalciferol (Vitamin D3) 5,000 UNIT Tab PO SCH (07:43)
[2023-09-11] MEDS: Loratadine 10 MG Tab PO SCH (07:43)
[2023-09-11 08:06] LABS: ALBUMIN 2.5 g/dL (3.4-5.0); BILIRUBIN TOTAL 0.5 mg/dL (0.0-1.0); C-REACTIVE PROTEIN 6.2 mg/dL (<=0.30); CALCIUM 8.6 mg/dL (8.4-10.1); CREATININE 1.1 mg/dL (0.7-1.3); EST CRCL DRUG DOSING (CG) 71.61 mL/min; POTASSIUM,K 4.9 mEq/L (3.5-5.0); PROTEIN TOTAL,TP 6.3 g/dL (6.4-8.2)
[2023-09-11] MEDS: Enoxaparin 40 MG/0.4 ML Syringe SUBCUT SCH (11:25)
[2023-09-11] MEDS: Celecoxib 100 MG Cap PO SCH (19:23)
[2023-09-11] MEDS: Melatonin 3 MG Tab PO SCH (19:24)
[2023-09-11] MEDS: Rosuvastatin 10 MG Tab PO SCH (19:25)
[2023-09-11] MEDS: Metoprolol Succinate 25 MG Tab.ER PO SCH (19:33)
[2023-09-12] MEDS: oxyCODONE 5 MG Tab PO SCH ×3 (02:10→14:10)
[2023-09-12] MEDS: HYDROmorphone 0.5 MG/0.5 ML Syringe IVPUSH PRN (06:23)
[2023-09-12] MEDS: Pantoprazole 40 MG Tab.CR PO SCH (06:23)
[2023-09-12 08:02] LABS: BASOPHILS ABSOLUTE AUTO 0.03 10^3/uL (0.00-0.50); BASOPHILS PERCENT AUTO 0.3 % (0-1); EOSINOPHILS ABSOLUTE AUTO 0.08 10^3/uL (0.00-1.50); EOSINOPHILS PERCENT AUTO 0.8 % (0-6); HEMATOCRIT 47.1 % (42.0-52.0); HEMOGLOBIN 14.5 g/dL (14.0-18.0); IMMATURE GRAN ABSOLUTE AUTO 0.01 10^3/uL (0.00-0.49); IMMATURE GRAN PERCENT AUTO 0.1 % (0.0-4.9); LYMPHOCYTES ABSOLUTE AUTO 0.78 10^3/uL (0.60-5.00); LYMPHOCYTES PERCENT AUTO 7.8 % (24-44); MEAN CORPUSCULAR HEMOGLOBIN 31.5 pg (27.0-32.0); MEAN CORPUSCULAR HGB CONC 30.8 g/dL (32.0-36.0); MEAN CORPUSCULAR VOLUME 102.2 fL (83.0-97.0); MONOCYTES ABSOLUTE AUTO 0.81 10^3/uL (0.00-1.50); MONOCYTES PERCENT AUTO 8.1 % (0-10); NEUTROPHILS ABSOLUTE AUTO 8.29 x10^3/uL (1.80-8.00); NEUTROPHILS PERCENT AUTO 82.9 % (41-71); PLATELET COUNT,PLT 169 10^3/uL (150-400); RED BLOOD CELL COUNT 4.61 x10^6/uL (4.50-6.00)
[2023-09-12 08:16] LABS: ALBUMIN 2.5 g/dL (3.4-5.0); BILIRUBIN TOTAL 0.6 mg/dL (0.0-1.0); C-REACTIVE PROTEIN 5.95 mg/dL (<=0.30); CALCIUM 8.9 mg/dL (8.4-10.1); CREATININE 1.1 mg/dL (0.7-1.3); EST CRCL DRUG DOSING (CG) 71.61 mL/min; POTASSIUM,K 4.8 mEq/L (3.5-5.0); PROTEIN TOTAL,TP 6.3 g/dL (6.4-8.2)
[2023-09-12] MEDS: Multivitamin Tab PO SCH (09:08)
[2023-09-12] MEDS: Hydrochlorothiazide 12.5 MG Cap PO SCH (09:09)
[2023-09-12] MEDS: Ascorbic Acid 500 MG Tab PO SCH (09:09)
[2023-09-12] MEDS: Docusate Sodium 100 MG Cap PO SCH (09:09)
[2023-09-12] MEDS: Cholecalciferol (Vitamin D3) 5,000 UNIT Tab PO SCH (09:09)
[2023-09-12] MEDS: Aspirin 81 MG Tab.EC PO SCH (09:10)
[2023-09-12] MEDS: Losartan 25 MG Tab PO SCH (09:10)
[2023-09-12] MEDS: Loratadine 10 MG Tab PO SCH (09:24)
[2023-09-12] MEDS: Escitalopram 10 MG Tab PO SCH (09:24)
[2023-09-12] MEDS: Bacitracin/Neomycin/Polymyxin B Oint 28.4 GM Tube TOP SCH ×2 (09:41→13:16)
[2023-09-12] MEDS: Enoxaparin 40 MG/0.4 ML Syringe SUBCUT SCH (12:01)
[2023-09-12 12:14] VITALS: BP 159/74; PULSE 82
[2023-09-12] MEDS: Polyethylene Glycol 3350 Powder 17 GM Packet PO PRN (12:28)
== END 2023-09-12 14:39 | disposition swing bed (61) | DRG 184 ==
LOC: CC.ED 16:28 → CC.MS 16:43 → CC.ED 19:05 → CC.MS 19:05 → UNDOADMIN 19:05 → CC.MS 20:00
PROVIDERS: ADMIT Nurse Practitioner Family; ATTEND Nurse Practitioner Family
PROC: 3E0234Z Introduction of Serum, Toxoid and Vaccine into Muscle, Percutaneous Approach (ICD-10-PCS; principal; 2023-09-08)
DX: S22.43XA Multiple fractures of ribs, bilateral, initial encounter for closed fracture (principal); J98.11 Atelectasis; S22.21XA Fracture of manubrium, initial encounter for closed fracture; S12.9XXA Fracture of neck, unspecified, initial encounter; S22.050A Wedge compression fracture of T5-T6 vertebra, initial encounter for closed fracture; E11.9 Type 2 diabetes mellitus without complications; R40.2412 Glasgow coma scale score 13-15, at arrival to emergency department; Z23 Encounter for immunization; G47.30 Sleep apnea, unspecified; I10 Essential (primary) hypertension; E78.00 Pure hypercholesterolemia, unspecified; Z79.4 Long term (current) use of insulin; Z79.82 Long term (current) use of aspirin; Z79.899 Other long term (current) drug therapy; Z98.890 Other specified postprocedural states; Z90.49 Acquired absence of other specified parts of digestive tract; Z87.891 Personal history of nicotine dependence; W14.XXXA Fall from tree, initial encounter
CPT/HCPCS: 36415; 70450; 71046; 71260; 72125; 73030-LT; 73030-RT; 74177; 80053; 81001; 85025; 86140; 90471; 90714; 93005; 93010; 96374; 96376; 97110-GP; 97162-GP; 99223; 99232; 99233; 99238; 99285-25; A9270-GY; J1170; J1650; J7030; Q9967

== ENCOUNTER 2023-09-12 14:10 | Inpatient (IN) | payer MEDICARE, BC ==
[2023-09-12] MEDS ORDERED: Naloxone 2 MG/2 ML Syringe IVPUSH PRN (15:05)
[2023-09-12] MEDS ORDERED: Temazepam 15 MG Cap PO PRN (15:05)
[2023-09-12] MEDS ORDERED: Polyethylene Glycol 3350 Powder 17 GM Packet PO PRN (15:05)
[2023-09-12] MEDS ORDERED: Ondansetron 4 MG Tab.DIS PO PRN (15:05)
[2023-09-12] MEDS ORDERED: Ondansetron 4 MG/2 ML SDV IV PRN (15:05)
[2023-09-12] MEDS ORDERED: Sodium Chloride 0.9% 10 ML Syringe FLUSH PRN ×2 (15:05)
[2023-09-12] MEDS ORDERED: HYDROmorphone 0.5 MG/0.5 ML Syringe IVPUSH PRN (15:05)
[2023-09-12] MEDS ORDERED: Cyclobenzaprine 10 MG Tab PO PRN (15:05)
[2023-09-12] MEDS ORDERED: Bacitracin/Neomycin/Polymyxin B Oint 0.9 GM U/D Packet TOP PRN (15:05)
[2023-09-12] MEDS: Celecoxib 100 MG Cap PO SCH (19:23)
[2023-09-12] MEDS: Docusate Sodium 100 MG Cap PO SCH (19:24)
[2023-09-12] MEDS: Rosuvastatin 10 MG Tab PO SCH (19:25)
[2023-09-12] MEDS: Melatonin 3 MG Tab PO SCH (19:26)
[2023-09-12] MEDS: oxyCODONE 5 MG Tab PO SCH (19:27)
[2023-09-12] MEDS: Metoprolol Succinate 25 MG Tab.ER PO SCH (19:28)
[2023-09-12] MEDS: UBIDECARENONE 200 MG PO SCH (19:34)
[2023-09-13] MEDS: oxyCODONE 5 MG Tab PO SCH ×4 (02:00→19:43)
[2023-09-13] MEDS: Pantoprazole 40 MG Tab.CR PO SCH (06:05)
[2023-09-13] MEDS: Hydrochlorothiazide 12.5 MG Cap PO SCH (08:25)
[2023-09-13] MEDS: Docusate Sodium 100 MG Cap PO SCH ×2 (08:25→19:43)
[2023-09-13] MEDS: Escitalopram 10 MG Tab PO SCH (08:25)
[2023-09-13] MEDS: Loratadine 10 MG Tab PO SCH (08:25)
[2023-09-13] MEDS: Cholecalciferol (Vitamin D3) 5,000 UNIT Tab PO SCH (08:25)
[2023-09-13] MEDS: Multivitamin Tab PO SCH (08:26)
[2023-09-13] MEDS: Ascorbic Acid 500 MG Tab PO SCH (08:26)
[2023-09-13] MEDS: Aspirin 81 MG Tab.EC PO SCH (08:26)
[2023-09-13] MEDS: Losartan 25 MG Tab PO SCH (08:29)
[2023-09-13] MEDS: Enoxaparin 40 MG/0.4 ML Syringe SUBCUT SCH (11:53)
[2023-09-13] MEDS: Acetaminophen 325 MG Tab PO PRN (13:09)
[2023-09-13] MEDS: Rosuvastatin 10 MG Tab PO SCH (19:46)
[2023-09-13] MEDS: Celecoxib 100 MG Cap PO SCH (19:46)
[2023-09-13] MEDS: Melatonin 3 MG Tab PO SCH (19:46)
[2023-09-13] MEDS: Metoprolol Succinate 25 MG Tab.ER PO SCH (19:46)
[2023-09-13] MEDS: UBIDECARENONE 200 MG PO SCH (19:53)
[2023-09-14] MEDS: oxyCODONE 5 MG Tab PO SCH ×4 (06:02→19:32)
[2023-09-14] MEDS: Acetaminophen 325 MG Tab PO PRN ×3 (06:24→15:14)
[2023-09-14] MEDS: Pantoprazole 40 MG Tab.CR PO SCH (06:25)
[2023-09-14] MEDS: Losartan 25 MG Tab PO SCH (07:37)
[2023-09-14] MEDS: Hydrochlorothiazide 12.5 MG Cap PO SCH (07:37)
[2023-09-14] MEDS: Aspirin 81 MG Tab.EC PO SCH (07:37)
[2023-09-14] MEDS: Docusate Sodium 100 MG Cap PO SCH ×2 (07:38→19:32)
[2023-09-14] MEDS: Loratadine 10 MG Tab PO SCH (07:38)
[2023-09-14] MEDS: Cholecalciferol (Vitamin D3) 5,000 UNIT Tab PO SCH (07:38)
[2023-09-14] MEDS: Escitalopram 10 MG Tab PO SCH (07:38)
[2023-09-14] MEDS: Multivitamin Tab PO SCH (07:38)
[2023-09-14] MEDS: Ascorbic Acid 500 MG Tab PO SCH (07:38)
[2023-09-14] MEDS: Enoxaparin 40 MG/0.4 ML Syringe SUBCUT SCH (12:12)
[2023-09-14] MEDS: guaiFENesin 200 MG Tab PO SCH ×2 (16:27→19:36)
[2023-09-14] MEDS: Melatonin 3 MG Tab PO SCH (19:32)
[2023-09-14] MEDS: Rosuvastatin 10 MG Tab PO SCH (19:32)
[2023-09-14] MEDS: UBIDECARENONE 200 MG PO SCH (19:33)
[2023-09-14] MEDS: Celecoxib 100 MG Cap PO SCH (19:33)
[2023-09-14] MEDS: Metoprolol Succinate 25 MG Tab.ER PO SCH (19:37)
[2023-09-15] MEDS: oxyCODONE 5 MG Tab PO SCH ×2 (01:53→08:09)
[2023-09-15] MEDS: Pantoprazole 40 MG Tab.CR PO SCH (06:49)
[2023-09-15] MEDS: Aspirin 81 MG Tab.EC PO SCH (08:08)
[2023-09-15] MEDS: Losartan 25 MG Tab PO SCH (08:08)
[2023-09-15] MEDS: Ascorbic Acid 500 MG Tab PO SCH (08:08)
[2023-09-15] MEDS: Hydrochlorothiazide 12.5 MG Cap PO SCH (08:08)
[2023-09-15] MEDS: Escitalopram 10 MG Tab PO SCH (08:08)
[2023-09-15] MEDS: guaiFENesin 200 MG Tab PO SCH ×2 (08:08→19:36)
[2023-09-15] MEDS: Docusate Sodium 100 MG Cap PO SCH ×2 (08:08→19:36)
[2023-09-15] MEDS: Cholecalciferol (Vitamin D3) 5,000 UNIT Tab PO SCH (08:09)
[2023-09-15] MEDS: Multivitamin Tab PO SCH (08:09)
[2023-09-15] MEDS: Loratadine 10 MG Tab PO SCH (08:09)
[2023-09-15] MEDS: Acetaminophen 325 MG Tab PO PRN (08:52)
[2023-09-15] MEDS ORDERED: Acetaminophen/HYDROcodone 325-5 MG Tab PO PRN (09:18)
[2023-09-15 09:29] LABS: BASOPHILS ABSOLUTE AUTO 0.07 10^3/uL (0.00-0.50); BASOPHILS PERCENT AUTO 0.5 % (0-1); EOSINOPHILS ABSOLUTE AUTO 0.04 10^3/uL (0.00-1.50); EOSINOPHILS PERCENT AUTO 0.3 % (0-6); HEMATOCRIT 44.1 % (42.0-52.0); HEMOGLOBIN 14.5 g/dL (14.0-18.0); IMMATURE GRAN ABSOLUTE AUTO 0.02 10^3/uL (0.00-0.49); IMMATURE GRAN PERCENT AUTO 0.1 % (0.0-4.9); LYMPHOCYTES ABSOLUTE AUTO 0.58 10^3/uL (0.60-5.00); LYMPHOCYTES PERCENT AUTO 4.2 % (24-44); MEAN CORPUSCULAR HGB CONC 32.9 g/dL (32.0-36.0); MEAN CORPUSCULAR VOLUME 94.2 fL (83.0-97.0); MONOCYTES ABSOLUTE AUTO 0.93 10^3/uL (0.00-1.50); MONOCYTES PERCENT AUTO 6.8 % (0-10); NEUTROPHILS ABSOLUTE AUTO 12.11 x10^3/uL (1.80-8.00); NEUTROPHILS PERCENT AUTO 88.1 % (41-71); PLATELET COUNT,PLT 223 10^3/uL (150-400); RED BLOOD CELL COUNT 4.68 x10^6/uL (4.50-6.00); WHITE BLOOD CELL COUNT,WBC 13.8 10^3/uL (4.0-11.0)
[2023-09-15 09:46] LABS: ALBUMIN 2.9 g/dL (3.4-5.0); BILIRUBIN TOTAL 0.7 mg/dL (0.0-1.0); C-REACTIVE PROTEIN 4.29 mg/dL (<=0.30); CALCIUM 9.4 mg/dL (8.4-10.1); CREATININE 1.2 mg/dL (0.7-1.3); EST CRCL DRUG DOSING (CG) 65.65 mL/min; POTASSIUM,K 4.5 mEq/L (3.5-5.0); PROTEIN TOTAL,TP 7.4 g/dL (6.4-8.2)
[2023-09-15] MEDS: Enoxaparin 40 MG/0.4 ML Syringe SUBCUT SCH (12:52)
[2023-09-15 14:34] LABS: APPEARANCE,URINE CLEAR (CLEAR); BILIRUBIN,URINE NEGATIVE (NEGATIVE); COLOR,URINE YELLOW (YELLOW); GLUCOSE,URINE NEGATIVE (NEGATIVE); KETONES,URINE 40 mg/dL (NEGATIVE); LEUKOCYTE ESTERASE,URINE NEGATIVE (NEGATIVE); NITRITE,URINE NEGATIVE (NEGATIVE); OCCULT BLOOD,URINE NEGATIVE (NEGATIVE); PROTEIN,URINE 30 mg/dL (NEGATIVE)
[2023-09-15 14:52] LABS: EPITHELIAL CELLS,URINE NOT SEEN /HPF (NOT SEEN); RBC,URINE NOT SEEN /HPF (0-5); WBC,URINE NOT SEEN /HPF (0-5)
[2023-09-15 14:53] LABS: BACTERIA,URINE NOT SEEN /HPF (NOT SEEN); MUCUS,URINE OCCASIONAL /HPF (NOT SEEN)
[2023-09-15] MEDS: Acetaminophen/HYDROcodone 325-5 MG Tab PO PRN (17:22)
[2023-09-15] MEDS: Amoxicillin/Clavulanate K 875-125 MG Tab PO SCH (17:23)
[2023-09-15] MEDS: Rosuvastatin 10 MG Tab PO SCH (19:36)
[2023-09-15] MEDS: Celecoxib 100 MG Cap PO SCH (19:36)
[2023-09-15] MEDS: Metoprolol Succinate 25 MG Tab.ER PO SCH (19:37)
[2023-09-15] MEDS: UBIDECARENONE 200 MG PO SCH (19:37)
[2023-09-15] MEDS: Melatonin 3 MG Tab PO SCH (19:37)
[2023-09-16] MEDS: Pantoprazole 40 MG Tab.CR PO SCH (06:10)
[2023-09-16] MEDS: guaiFENesin 200 MG Tab PO SCH ×2 (07:46→19:20)
[2023-09-16] MEDS: Escitalopram 10 MG Tab PO SCH (07:46)
[2023-09-16] MEDS: Docusate Sodium 100 MG Cap PO SCH ×2 (07:46→19:20)
[2023-09-16] MEDS: Ascorbic Acid 500 MG Tab PO SCH (07:46)
[2023-09-16] MEDS: Amoxicillin/Clavulanate K 875-125 MG Tab PO SCH ×2 (07:47→18:13)
[2023-09-16] MEDS: Hydrochlorothiazide 12.5 MG Cap PO SCH (07:47)
[2023-09-16] MEDS: Aspirin 81 MG Tab.EC PO SCH (07:47)
[2023-09-16] MEDS: Acetaminophen/HYDROcodone 325-5 MG Tab PO PRN ×2 (07:47→21:01)
[2023-09-16] MEDS: Cholecalciferol (Vitamin D3) 5,000 UNIT Tab PO SCH (07:47)
[2023-09-16] MEDS: Loratadine 10 MG Tab PO SCH (07:48)
[2023-09-16] MEDS: Losartan 25 MG Tab PO SCH (07:48)
[2023-09-16] MEDS: Multivitamin Tab PO SCH (07:48)
[2023-09-16] MEDS: Enoxaparin 40 MG/0.4 ML Syringe SUBCUT SCH (12:12)
[2023-09-16] MEDS: Celecoxib 100 MG Cap PO SCH (19:20)
[2023-09-16] MEDS: Melatonin 3 MG Tab PO SCH (19:20)
[2023-09-16] MEDS: Metoprolol Succinate 25 MG Tab.ER PO SCH (19:20)
[2023-09-16] MEDS: Rosuvastatin 10 MG Tab PO SCH (19:21)
[2023-09-16] MEDS: UBIDECARENONE 200 MG PO SCH (19:45)
[2023-09-17] MEDS: Pantoprazole 40 MG Tab.CR PO SCH (06:07)
[2023-09-17] MEDS: guaiFENesin 200 MG Tab PO SCH (08:06)
[2023-09-17] MEDS: Amoxicillin/Clavulanate K 875-125 MG Tab PO SCH (08:07)
[2023-09-17] MEDS: Loratadine 10 MG Tab PO SCH (08:07)
[2023-09-17] MEDS: Hydrochlorothiazide 12.5 MG Cap PO SCH (08:07)
[2023-09-17] MEDS: Multivitamin Tab PO SCH (08:07)
[2023-09-17] MEDS: Losartan 25 MG Tab PO SCH (08:08)
[2023-09-17] MEDS: Ascorbic Acid 500 MG Tab PO SCH (08:08)
[2023-09-17] MEDS: Aspirin 81 MG Tab.EC PO SCH (08:08)
[2023-09-17] MEDS: Docusate Sodium 100 MG Cap PO SCH (08:08)
[2023-09-17] MEDS: Escitalopram 10 MG Tab PO SCH (08:08)
[2023-09-17] MEDS: Cholecalciferol (Vitamin D3) 5,000 UNIT Tab PO SCH (08:09)
[2023-09-17] MEDS: Acetaminophen/HYDROcodone 325-5 MG Tab PO PRN (08:12)
[2023-09-17 09:21] LABS: BASOPHILS ABSOLUTE AUTO 0.05 10^3/uL (0.00-0.50); BASOPHILS PERCENT AUTO 0.5 % (0-1); EOSINOPHILS ABSOLUTE AUTO 0.09 10^3/uL (0.00-1.50); EOSINOPHILS PERCENT AUTO 0.9 % (0-6); HEMATOCRIT 40.9 % (42.0-52.0); HEMOGLOBIN 13.4 g/dL (14.0-18.0); IMMATURE GRAN ABSOLUTE AUTO 0.03 10^3/uL (0.00-0.49); IMMATURE GRAN PERCENT AUTO 0.3 % (0.0-4.9); LYMPHOCYTES PERCENT AUTO 5.9 % (24-44); MEAN CORPUSCULAR HEMOGLOBIN 30.9 pg (27.0-32.0); MEAN CORPUSCULAR HGB CONC 32.8 g/dL (32.0-36.0); MEAN CORPUSCULAR VOLUME 94.5 fL (83.0-97.0); MONOCYTES ABSOLUTE AUTO 0.84 10^3/uL (0.00-1.50); MONOCYTES PERCENT AUTO 8.2 % (0-10); NEUTROPHILS ABSOLUTE AUTO 8.64 x10^3/uL (1.80-8.00); NEUTROPHILS PERCENT AUTO 84.2 % (41-71); PLATELET COUNT,PLT 214 10^3/uL (150-400); RED BLOOD CELL COUNT 4.33 x10^6/uL (4.50-6.00); WHITE BLOOD CELL COUNT,WBC 10.3 10^3/uL (4.0-11.0)
[2023-09-17 09:34] LABS: ALBUMIN 2.4 g/dL (3.4-5.0); BILIRUBIN TOTAL 0.7 mg/dL (0.0-1.0); C-REACTIVE PROTEIN 9.32 mg/dL (<=0.30); CALCIUM 8.8 mg/dL (8.4-10.1); CREATININE 1.1 mg/dL (0.7-1.3); EST CRCL DRUG DOSING (CG) 71.61 mL/min; PROTEIN TOTAL,TP 6.7 g/dL (6.4-8.2)
[2023-09-17] MEDS: Enoxaparin 40 MG/0.4 ML Syringe SUBCUT SCH (12:14)
[2023-09-17 12:22] VITALS: BP 174/76; PULSE 85
== END 2023-09-17 15:15 | disposition home or self-care (01) | DRG 561 ==
LOC: CC.MS 14:10 → UNDOADMIN 14:55 → CC.MS 14:55
PROVIDERS: ADMIT Nurse Practitioner Family; ATTEND Nurse Practitioner Family
DX: S22.050D Wedge compression fracture of T5-T6 vertebra, subsequent encounter for fracture with routine healing (principal); S22.43XD Multiple fractures of ribs, bilateral, subsequent encounter for fracture with routine healing; S22.21XD Fracture of manubrium, subsequent encounter for fracture with routine healing; Z79.899 Other long term (current) drug therapy; Z79.82 Long term (current) use of aspirin
CPT/HCPCS: 36415; 71046; 80053; 81001; 82947; 85025; 86140; 87070; 87205; 97110-GP; A9270-GY; J1650

== ENCOUNTER 2024-05-23 14:55 | Observation (INO) | payer OTHER, MEDICARE, BC ==
[2024-05-23] MEDS: Iopamidol 755 Mg/ML 100 ML Bottle IVPUSH ONE (15:15)
[2024-05-23 15:22] LABS: BASOPHILS ABSOLUTE AUTO 0.03 10^3/uL (0.00-0.50); BASOPHILS PERCENT AUTO 0.5 % (0-1); EOSINOPHILS ABSOLUTE AUTO 0.21 10^3/uL (0.00-1.50); EOSINOPHILS PERCENT AUTO 3.5 % (0-6); HEMATOCRIT 38.3 % (42.0-52.0); HEMOGLOBIN 12.8 g/dL (14.0-18.0); IMMATURE GRAN ABSOLUTE AUTO 0.03 10^3/uL (0.00-0.49); IMMATURE GRAN PERCENT AUTO 0.5 % (0.0-4.9); LYMPHOCYTES ABSOLUTE AUTO 1.54 10^3/uL (0.60-5.00); LYMPHOCYTES PERCENT AUTO 25.8 % (24-44); MEAN CORPUSCULAR HEMOGLOBIN 31.3 pg (27.0-32.0); MEAN CORPUSCULAR HGB CONC 33.4 g/dL (32.0-36.0); MEAN CORPUSCULAR VOLUME 93.6 fL (83.0-97.0); MONOCYTES ABSOLUTE AUTO 0.55 10^3/uL (0.00-1.50); MONOCYTES PERCENT AUTO 9.2 % (0-10); NEUTROPHILS PERCENT AUTO 60.5 % (41-71); PLATELET COUNT,PLT 236 10^3/uL (150-400); RED BLOOD CELL COUNT 4.09 x10^6/uL (4.50-6.00)
[2024-05-23 15:34] LABS: ALANINE AMINOTRANSFERASE,ALT 22 U/L (12-78); ALBUMIN 2.9 g/dL (3.4-5.0); ALKALINE PHOSPHATASE 160 U/L (46-116); ASPARTATE AMNIOTRANSFERASE,AST 22 U/L (15-37); BILIRUBIN TOTAL 0.4 mg/dL (0.0-1.0); BLOOD UREA NITROGEN,BUN 32 mg/dL (7-18); CALCIUM 8.3 mg/dL (8.4-10.1); CARBON DIOXIDE,CO2 25 mmol/L (21-32); CHLORIDE,CL 104 mEq/L (98-106); EST CRCL DRUG DOSING (CG) 0.97 mL/min; GLUCOSE RANDOM 53 mg/dL (75-99); POTASSIUM,K 4.4 mEq/L (3.5-5.0); PROTEIN TOTAL,TP 6.2 g/dL (6.4-8.2); SODIUM,NA 140 mEq/L (136-145)
[2024-05-23 15:35] LABS: C-REACTIVE PROTEIN < 0.50 mg/dL (<=0.50); ESTIMATED GFR 24 mL/min (>=60)
[2024-05-23 15:37] LABS: CREATININE 2.7 mg/dL (0.7-1.3)
[2024-05-23] MEDS: Sodium Chloride 0.9% 1,000 ML IV ONE (15:39)
[2024-05-23] MEDS ORDERED: Acetaminophen 325 MG Tab PO PRN (18:39)
[2024-05-23] MEDS ORDERED: Ondansetron 4 MG/2 ML SDV IV PRN (18:39)
[2024-05-23] MEDS ORDERED: Ondansetron 4 MG Tab.DIS PO PRN (18:39)
[2024-05-23] MEDS: Celecoxib 100 MG Cap PO SCH (20:28)
[2024-05-23] MEDS: Metoprolol Succinate 25 MG Tab.ER PO SCH (20:28)
[2024-05-23 20:39] LABS: APPEARANCE,URINE CLEAR (CLEAR); BILIRUBIN,URINE NEGATIVE (NEGATIVE); COLOR,URINE YELLOW (YELLOW); GLUCOSE,URINE NEGATIVE (NEGATIVE); KETONES,URINE TRACE mg/dL (NEGATIVE); LEUKOCYTE ESTERASE,URINE NEGATIVE (NEGATIVE); NITRITE,URINE NEGATIVE (NEGATIVE); OCCULT BLOOD,URINE NEGATIVE (NEGATIVE); PH,URINE 5.5 (4.5-8.0); PROTEIN,URINE NEGATIVE (NEGATIVE); UROBILINOGEN,URINE 0.2 EU/dL (0.2-1.0)
[2024-05-23] MEDS: [UNRECOGNIZED DRUG - OTHER] SCH (22:04)
[2024-05-24] MEDS: Sodium Chloride 0.9% 1,000 ML IV SCH (02:46)
[2024-05-24] MEDS: Pantoprazole 40 MG Tab.CR PO SCH (06:53)
[2024-05-24 07:36] LABS: BASOPHILS ABSOLUTE AUTO 0.07 10^3/uL (0.00-0.50); BASOPHILS PERCENT AUTO 0.8 % (0-1); EOSINOPHILS ABSOLUTE AUTO 0.71 10^3/uL (0.00-1.50); EOSINOPHILS PERCENT AUTO 8.6 % (0-6); HEMATOCRIT 38.3 % (42.0-52.0); HEMOGLOBIN 12.5 g/dL (14.0-18.0); IMMATURE GRAN ABSOLUTE AUTO 0.02 10^3/uL (0.00-0.49); IMMATURE GRAN PERCENT AUTO 0.2 % (0.0-4.9); LYMPHOCYTES ABSOLUTE AUTO 1.56 10^3/uL (0.60-5.00); LYMPHOCYTES PERCENT AUTO 18.9 % (24-44); MEAN CORPUSCULAR HEMOGLOBIN 30.3 pg (27.0-32.0); MEAN CORPUSCULAR HGB CONC 32.6 g/dL (32.0-36.0); MONOCYTES ABSOLUTE AUTO 0.83 10^3/uL (0.00-1.50); MONOCYTES PERCENT AUTO 10.1 % (0-10); NEUTROPHILS ABSOLUTE AUTO 5.05 x10^3/uL (1.80-8.00); NEUTROPHILS PERCENT AUTO 61.4 % (41-71); PLATELET COUNT,PLT 206 10^3/uL (150-400); RED BLOOD CELL COUNT 4.12 x10^6/uL (4.50-6.00); WHITE BLOOD CELL COUNT,WBC 8.2 10^3/uL (4.0-11.0)
[2024-05-24] MEDS: Hydrochlorothiazide 12.5 MG Cap PO SCH (07:50)
[2024-05-24] MEDS: Loratadine 10 MG Tab PO SCH (07:50)
[2024-05-24] MEDS: Losartan 25 MG Tab PO SCH (07:50)
[2024-05-24] MEDS: Multivitamin Tab PO SCH (07:50)
[2024-05-24] MEDS: Cholecalciferol (Vitamin D3) 5,000 UNIT Tab PO SCH (07:50)
[2024-05-24 07:51] VITALS: BP 147/68
[2024-05-24] MEDS: Escitalopram 10 MG Tab PO SCH (07:51)
[2024-05-24 07:57] VITALS: PULSE 69
[2024-05-24 08:24] LABS: ALANINE AMINOTRANSFERASE,ALT 15 U/L (12-78); ALBUMIN 2.7 g/dL (3.4-5.0); ALKALINE PHOSPHATASE 158 U/L (46-116); ASPARTATE AMNIOTRANSFERASE,AST 19 U/L (15-37); BILIRUBIN TOTAL 0.3 mg/dL (0.0-1.0); BLOOD UREA NITROGEN,BUN 24 mg/dL (7-18); CALCIUM 8.3 mg/dL (8.4-10.1); CARBON DIOXIDE,CO2 24 mmol/L (21-32); CREATININE 2.1 mg/dL (0.7-1.3); EST CRCL DRUG DOSING (CG) 36.97 mL/min; GLUCOSE RANDOM 126 mg/dL (75-99)
[2024-05-24 08:26] LABS: C-REACTIVE PROTEIN < 0.50 mg/dL (<=0.50); ESTIMATED GFR 33 mL/min (>=60)
[2024-05-24 08:29] LABS: CHLORIDE,CL 108 mEq/L (98-106); POTASSIUM,K 5.2 mEq/L (3.5-5.0); SODIUM,NA 142 mEq/L (136-145)
== END 2024-05-24 09:40 | disposition home or self-care (01) ==
LOC: CC.ED 14:55 → CC.MS 16:29 → UNDOADMOB 17:00 → CC.MS 17:00
PROVIDERS: ADMIT Nurse Practitioner Family; ATTEND Nurse Practitioner Family
DX: N17.9 Acute kidney failure, unspecified (principal); V89.2XXA Person injured in unspecified motor-vehicle accident, traffic, initial encounter
CPT/HCPCS: 36415; 74177; 80053; 81003; 85025; 86140; 96360; 96361; 99285-25; A9270-GY; G0378; J7030; Q9967

== ENCOUNTER 2025-06-11 14:50 | Emergency (ER) | payer MEDICARE, BC ==
[2025-06-11 14:56] VITALS: BP 154/81; PULSE 110
[2025-06-11] MEDS: Ondansetron 4 MG/2 ML SDV IVPUSH PRN (15:01)
[2025-06-11 15:22] LABS: APPEARANCE,URINE CLEAR (CLEAR); BASOPHILS ABSOLUTE AUTO 0.06 10^3/uL (0.00-0.50); BASOPHILS PERCENT AUTO 0.7 % (0-1); EOSINOPHILS ABSOLUTE AUTO 0.12 10^3/uL (0.00-1.50); EOSINOPHILS PERCENT AUTO 1.4 % (0-6); GLUCOSE,URINE NEGATIVE (NEGATIVE); IMMATURE GRAN ABSOLUTE AUTO 0.02 10^3/uL (0.00-0.49); IMMATURE GRAN PERCENT AUTO 0.2 % (0.0-4.9); LYMPHOCYTES ABSOLUTE AUTO 1.05 10^3/uL (0.60-5.00); LYMPHOCYTES PERCENT AUTO 11.9 % (24-44); MONOCYTES ABSOLUTE AUTO 0.63 10^3/uL (0.00-1.50); MONOCYTES PERCENT AUTO 7.2 % (0-10); NEUTROPHILS ABSOLUTE AUTO 6.92 x10^3/uL (1.80-8.00); NEUTROPHILS PERCENT AUTO 78.6 % (41-71); OCCULT BLOOD,URINE NEGATIVE (NEGATIVE); PLATELET COUNT,PLT 266 10^3/uL (150-400); RED BLOOD CELL COUNT 4.25 x10^6/uL (4.50-6.00); WHITE BLOOD CELL COUNT,WBC 8.8 10^3/uL (4.0-11.0)
[2025-06-11 15:35] LABS: ALANINE AMINOTRANSFERASE,ALT 28 U/L (12-78); ASPARTATE AMNIOTRANSFERASE,AST 18 U/L (15-37); BILIRUBIN TOTAL 0.3 mg/dL (0.0-1.0); BLOOD UREA NITROGEN,BUN 23 mg/dL (7-18); CARBON DIOXIDE,CO2 29 mmol/L (21-32); CHLORIDE,CL 102 mEq/L (98-106); CREATININE 1.4 mg/dL (0.7-1.3); EST CRCL DRUG DOSING (CG) 54.64 mL/min; ESTIMATED GFR 53 mL/min (>=60); GLUCOSE RANDOM 102 mg/dL (75-99); POTASSIUM,K 4.6 mEq/L (3.5-5.0); PROTEIN TOTAL,TP 7.1 g/dL (6.4-8.2); SODIUM,NA 138 mEq/L (136-145)
[2025-06-11] MEDS: Orphenadrine 60 MG/2 ML Inj IV ONE (17:00)
[2025-06-11] MEDS: Take Home: Acetaminophen/oxyCODONE 325-5 MG, 2 Tab Pack PO ONE (17:45)
[2025-06-11] MEDS: Take Home: Cyclobenzaprine 10 MG Tab, 4 Tab Pack PO ONE (17:45)
== END 2025-06-11 17:45 | disposition home or self-care (01) ==
LOC: CC.ED 14:50
DX: M51.26 Other intervertebral disc displacement, lumbar region (principal); E78.00 Pure hypercholesterolemia, unspecified; I10 Essential (primary) hypertension; E10.9 Type 1 diabetes mellitus without complications; K21.9 Gastro-esophageal reflux disease without esophagitis; Z79.899 Other long term (current) drug therapy; Z79.4 Long term (current) use of insulin
CPT/HCPCS: 36415; 72131; 80053; 81003; 83735; 85025; 86140; 96361; 96374; 96375; 99284; 99284-25; A9270-GY; J2270; J2360; J2405; J7040